=== PATIENT | female | born 1970 | race Caucasian/White ===

== ENCOUNTER 2022-07-01 09:58 | Outpatient (CLI) | payer OTHER, SELFPAY ==
--- NOTE | 2022-07-01 10:15 | CRLHL7_ITS ---
For Patients: As a result of the Century Cures Act, medical imaging exams and procedure reports are released immediately into your electronic medical record. You may view this report before your referring provider. If you have questions, please contact your health care provider. BILATERAL SCREENING MAMMOGRAM WITH COMPUTER-AIDED DETECTION AND TOMOSYNTHESIS TECHNIQUE: CC and MLO views were obtained. These mammographic images have been obtained using full-field digital technique. These mammographic images were interpreted with the benefit of computer-aided detection. Breast tomosynthesis was used in this interpretation. COMPARISON FILM: 06/30/21; 06/11/20; 05/09/19. FINDINGS: There are scattered areas of fibroglandular density. IMPRESSION: There is no radiographic evidence for malignancy. ASSESSMENT: BI-RADS Category 1: Negative RECOMMENDATION: Routine screening mammogram in 1 year. A lay language report of this examination will be provided to the patient. BRADLEY KENNEDY M.D. Diagnostic Radiologist [email or web address] Transcribed: 5:[address]/Dictated by: Bradley Kennedy MD @ 07/01/2022 12:12:00 PM (Electronically Signed)
== END 2022-07-01 09:59 | disposition home or self-care (01) ==
LOC: MAMMO 09:59
PROVIDERS: Visit Provider Physician Assistant
DX: Z12.31 Encounter for screening mammogram for malignant neoplasm of breast (principal)
CPT/HCPCS: 77063; 77067

== ENCOUNTER 2024-02-02 11:34 | Outpatient (CLI) | payer OTHER, SELFPAY ==
--- NOTE | 2024-02-02 11:45 | CRLHL7_ITS ---
For Patients: As a result of the Century Cures Act, medical imaging exams and procedure reports are released immediately into your electronic medical record. You may view this report before your referring provider. If you have questions, please contact your health care provider. INDICATION: Postmenopausal bleeding COMPARISON: none TECHNIQUE: 2D bautista scale and color Doppler images were acquired of the pelvis using a transabdominal and transvaginal approach. FINDINGS: Sonographic images demonstrate a normal size and smooth outer contour of the uterus. Uterus measures 5.7 cm in length by 2.7 cm in AP diameter by 4.0 cm in transverse dimension. The myometrium has a normal uniform echotexture. The endometrial lining measures 4.8 mm in composite thickness. The right ovary measures 2.7 x 1.5 x 1.5 cm in size and the left ovary measures 2.1 x 1.3 x 1.5 cm. The ovaries demonstrate normal arterial and venous blood flow on color Doppler analysis. There are no suspicious fluid collections within the cul-de-sac. IMPRESSION: Endometrial thickness 4.8 millimeters. No endometrial fluid or uterine fibroid. Dictated by Bradley Astudillo MD @ 02/04/2024 6:03:20 AM (Electronically Signed)
== END 2024-02-02 11:35 | disposition home or self-care (01) ==
LOC: US 11:34
PROVIDERS: Visit Provider Registered Nurse
DX: N95.0 Postmenopausal bleeding (principal); R93.89 Abnormal findings on diagnostic imaging of other specified body structures
CPT/HCPCS: 76830; 76856

== ENCOUNTER 2024-03-28 13:30 | Outpatient (CLI) | payer OTHER, SELFPAY ==
--- NOTE | 2024-03-28 13:40 | CRLHL7_ITS ---
For Patients: As a result of the Century Cures Act, medical imaging exams and procedure reports are released immediately into your electronic medical record. You may view this report before your referring provider. If you have questions, please contact your health care provider. BILATERAL SCREENING MAMMOGRAM WITH COMPUTER-AIDED DETECTION AND TOMOSYNTHESIS TECHNIQUE: CC and MLO views were obtained. These mammographic images have been obtained using full-field digital technique. These mammographic images were interpreted with the benefit of computer-aided detection. Breast Tomosynthesis was used in this interpretation. COMPARISON FILM: 07/01/22, 06/30/21, 06/11/20. FINDINGS: There are scattered areas of fibroglandular density IMPRESSION: There is no radiographic evidence for malignancy. ASSESSMENT: BI-RADS Category 1: Negative RECOMMENDATION: Routine screening mammogram in 1 year. A lay language report of this examination will be provided to the patient. Bradley Astudillo M.D. Diagnostic Radiologist [email or web address] [place]E/Dictated by: Bradley Astudillo MD @ 04/05/2024 12:24:00 PM (Electronically Signed)
== END 2024-03-28 13:31 | disposition home or self-care (01) ==
PROVIDERS: PCP Physician Assistant; Visit Provider Registered Nurse
DX: Z12.31 Encounter for screening mammogram for malignant neoplasm of breast (principal)
CPT/HCPCS: 77063; 77067

== ENCOUNTER 2024-03-29 10:00 | Day surgery (SDC) | payer OTHER, SELFPAY ==
[2024-03-29 10:25] VITALS: BMI 23.8
[2024-03-29] MEDS: SODIUM CHLORIDE 0.9 % (FLUSH) 10 ML SYRINGE IVF (10:46)
[2024-03-29] MEDS: LACTATED RINGERS 1000 ML 1,000 ML 100 ML IV (10:47)
[2024-03-29 10:52] VITALS: BP 141/86; PULSE 56; RESP 16; TEMP 36.6; O2SAT 99
[2024-03-29 11:11] LABS: Creatinine* 0.8 mg/dL (0.5-1.5); Est. Creatinine Clearance* 79.99; Estimated Glomerular Filt Rate 89 ml/min
--- NOTE | 2024-03-29 11:34 | W.PM.H&PU ---
History & Physical Update History & Physical Update H&P Reviewed and patient assessed: No changes noted
--- NOTE | 2024-03-29 12:06 | W.ANESCHARGE ---
Anesthesia Charges Start Date/Time Anesthesia Start Date: 03/29/24 Anesthesia Start Time: 11:50 Stop Date/Time Anesthesia Stop Date: 03/29/24 Anesthesia Stop Time: 13:01
[2024-03-29 12:58] VITALS: BP 105/65; PULSE 62; RESP 16; TEMP 36.3; O2SAT 99
--- NOTE | 2024-03-29 13:00 | W.ANESCHARGE ---
Anesthesia Charges Start Date/Time Anesthesia Start Date: 03/29/24 Anesthesia Start Time: 11:50 Stop Date/Time Anesthesia Stop Date: 03/29/24 Anesthesia Stop Time: 13:01
[2024-03-29 13:30] VITALS: BP 149/83; PULSE 49; RESP 16; O2SAT 100
[2024-03-29 13:45] VITALS: BP 153/91; PULSE 49; RESP 16; O2SAT 99
[2024-03-29 14:00] VITALS: BP 147/86; PULSE 45; RESP 16; O2SAT 99
--- NOTE | 2024-03-29 14:45 | PM.GYNPRLA ---
Procedure Pre-op/Post-op diagnoses: Pre-Op/Post-Op Diagnoses Operation Date: 03/29/24 11:15 <No data on this case meets the specified criteria> Procedure: Procedures Operation Date: 03/29/24 11:15 Actual Procedure Side Surgeon p Hysteroscopy, Dilation, ultrasound guided endometrial biopsy Nicki Camilo MD [employer] [facility] Generalist: Kayy Jefferson Anesthesia Type: Local and MAC Specimen: other (Endometrial biopsy) Findings: Pelvic exam: Mons normal, clitoris normal, urethral meatus normal. Labia minora and majora normal in appearance bilaterally. Perineum and anus normal appearance. Vaginal introitus normal appearance. Vaginal pink and well rugated with scant white discharge. Cervix pink and without lesion. Stenotic cervix Bimanual exam reveals uterus to be small, soft, mobile, anteverted, of normal texture. No palpable adnexal masses. Hysteroscopy: Atrophic endometrium. Uterine perforation noted on posterior uterine wall. No bleeding noted. Disposition: PACU Narrative: Preoperative diagnosis: 54 year-old with postmenopausal bleeding. Postoperative diagnosis: Same Surgeon:Nicki Camilo MD Estimated blood loss: <5 mL Complication: Uterine perforation with Hegar dilator 4 Procedure: Dona was taken to the operating where conscious sedation was found to be adequate. She was placed in the dorsal lithotomy position. An exam under anesthesia was performed with findings stated above. She was then prepped and draped in normal sterile manner. A bivalve metal speculum was placed in the vaginal canal. The cervix and vaginal canal appear normal. A paracervical block was placed using 1% lidocaine with epinephrine: 5 mL injected at the 4 and 8 o'clock positions on the cervix. The anterior lip of the cervix was then grasped with a long tenaculum. The cervix was dilated to Hegar 4 where loss of resistance was noted. A diagnostic hysteroscopy was performed with findings stated above. Hysteroscope was removed and decision was made to obtain endometrial biopsy via ultrasound guidance and with endometrial Pipelle. Dr. Jefferson provided the ultrasound guidance. Severe passes were done with endometrial Pipelle with scant tissue return. Fluid deficit at the end of the procedure 740mL. Importantly the rapid fluid deficit alarm was not triggered. Tenaculum clamp were removed from the uterus and cervix. Excellent hemostasis noted. Nothing was used for hemostasis. The patient tolerated the procedure well. Sponge, lap and instruments counts were correct at the end of the procedure. The patient was awakened from anesthesia and taken to the recovery area in stable condition. Surgical debrief performed at the end of the procedure. Discuss with patient in PACU about complication of uterine perforation. Given that perforation occurs with blunt instrument at non vascular location of the uterus, expectant management is appropriate. VSS. She has no pain and abdomen was soft and nontender. No vaginal bleeding noted on pad. Strict return precautions given. Patient verbalized understand and all questions answered.
== END 2024-03-29 14:23 | disposition home or self-care (01) ==
PROVIDERS: PCP Physician Assistant; Visit Provider Obstetrics & Gynecology
PROC: 0UDB8ZZ Extraction of Endometrium, Via Natural or Artificial Opening Endoscopic (ICD-10-PCS; CPT 58558; principal; 2024-03-29 11:15)
DX: N95.0 Postmenopausal bleeding (principal); N85.8 Other specified noninflammatory disorders of uterus; N99.71 Accidental puncture and laceration of a genitourinary system organ or structure during a genitourinary system procedure
CPT/HCPCS: 58558; 00952; 36415; 82565; 85018; 86850; 86900; 86901; 88305; J1100; J1885; J2405; J2704; J3010; J7120

== ENCOUNTER 2024-05-16 11:20 | Outpatient (CLI) | payer OTHER, SELFPAY ==
--- NOTE | 2024-05-16 11:30 | CRLHL7_ITS ---
For Patients: As a result of the Century Cures Act, medical imaging exams and procedure reports are released immediately into your electronic medical record. You may view this report before your referring provider. If you have questions, please contact your health care provider. INDICATION: Postmenopausal bleeding. History of uterine perforation 03/29/2024 COMPARISON: None available. FINDINGS: Transvaginal and transabdominal ultrasound examination of the female pelvis was performed. Initial examination is performed with transabdominal technique and transvaginal technique is used for better visualization of the pelvic structures. The uterus is anteverted with no evidence of mass. It measures 6.0 x 2.5 x 4.1 cm. There is a linear hypoechoic region superior fundus near the vertex of the uterine cavity, consistent scar from uterine perforation. The endometrial lining is normal in thickness at 3 mm. The ovaries are normal in appearance size, the right measuring 3.2 x 0.7 x 1.4 cm and the left measuring 2.3 x 0.8 x 1.2 cm. There is normal color and pulse doppler flow in both ovaries. There is no sign of free fluid in the pelvis. IMPRESSION: 1. Probable small scar superior uterine fundus recent perforation. 2. Otherwise normal ultrasound examination of the female pelvis using transvaginal and transabdominal technique. Dictated by Gavino Creda MD @ 05/17/2024 9:29:52 AM (Electronically Signed)
== END 2024-05-16 11:21 | disposition home or self-care (01) ==
LOC: US 11:21
PROVIDERS: PCP Physician Assistant; Visit Provider Obstetrics & Gynecology
DX: N95.0 Postmenopausal bleeding (principal); N88.2 Stricture and stenosis of cervix uteri
CPT/HCPCS: 76830; 76856

== ENCOUNTER 2024-11-09 09:59 | Outpatient (CLI) | payer OTHER, SELFPAY ==
--- NOTE | 2024-11-09 10:15 | CRLHL7_ITS ---
For Patients: As a result of the Century Cures Act, medical imaging exams and procedure reports are released immediately into your electronic medical record. You may view this report before your referring provider. If you have questions, please contact your health care provider. INDICATION: Right Upper Quadrant Pain COMPARISON: 05/16/2024 TECHNIQUE: Real time bautista scale imaging and color Doppler analysis was performed of the right upper quadrant. FINDINGS: The patient`s liver is of normal size and has uniform echogenicity. There is a normal appearance of the hepatic IVC and proximal abdominal aorta. There is no evidence of ascites. The gallbladder is of normal size and there is no evidence of intraluminal stones or sludge. The gallbladder wall measures 2 mm in thickness. The common bile duct is of normal size and measures 4 mm in diameter at the level of the monster hepatis. The pancreas appears normal. There is no evidence of a stone or hydronephrosis within the right kidney. The right kidney measures 10.9 cm in length. IMPRESSION: Normal right upper quadrant ultrasound. Dictated by Bradley Astudillo MD @ 11/09/2024 1:37:17 PM (Electronically Signed)
== END 2024-11-09 10:00 | disposition home or self-care (01) ==
LOC: US 10:00
PROVIDERS: PCP Physician Assistant; Visit Provider Physician Assistant
DX: R10.11 Right upper quadrant pain (principal)
CPT/HCPCS: 76705